=== PATIENT | male | born 1945 | race Caucasian/White ===

== ENCOUNTER 2018-11-15 09:45 | Day surgery (SDC) | payer OTHER | END 2018-11-15 13:29 | disposition home or self-care (01) | LOC: CACL 09:45 | PROVIDERS: ATTEND Internal Medicine Cardiovascular Disease | DX: I48.91 Unspecified atrial fibrillation (principal); I34.0 Nonrheumatic mitral (valve) insufficiency; I07.1 Rheumatic tricuspid insufficiency; I25.5 Ischemic cardiomyopathy; I25.10 Atherosclerotic heart disease of native coronary artery without angina pectoris; I10 Essential (primary) hypertension; E78.2 Mixed hyperlipidemia; Z88.1 Allergy status to other antibiotic agents; Z88.0 Allergy status to penicillin; Z88.8 Allergy status to other drugs, medicaments and biological substances | CPT/HCPCS: 93306 ==

== ENCOUNTER 2018-11-29 09:23 | Day surgery (SDC) | payer MEDICARE ==
[~2018-11-29] VITALS: Ht 170.2 cm; Wt 72.0 kg
[2018-11-29] MEDS ORDERED: TAMS0.4C2 PO (10:02)
[2018-11-29] MEDS ORDERED: CARV3.1212 PO (10:02)
[2018-11-29] MEDS ORDERED: APIX5TAB PO (10:02)
[2018-11-29] MEDS ORDERED: ATOR40TA PO (10:02)
[2018-11-29] MEDS ORDERED: RAMI5CAP57 PO (10:02)
[2018-11-29] MEDS ORDERED: METF500T17 PO (10:02)
[2018-11-29] MEDS ORDERED: ZOLP10TA PO (10:02)
[2018-11-29 10:23] LABS: ANION GAP 6 mmol/L (5-15); CALCIUM 8.6 mg/dL (8.5-10.1); CHLORIDE 107 mmol/L (98-107); CREATININE 0.89 mg/dL (0.7-1.3)
[2018-11-29] MEDS ORDERED: PROPOFOL 10 MG/ML, 20ML ONE (11:44)
== END 2018-11-29 13:02 | disposition home or self-care (01) ==
LOC: CACL 09:23
PROVIDERS: ATTEND Internal Medicine Cardiovascular Disease
DX: I48.91 Unspecified atrial fibrillation (principal); I10 Essential (primary) hypertension; E78.5 Hyperlipidemia, unspecified; I34.0 Nonrheumatic mitral (valve) insufficiency; I25.5 Ischemic cardiomyopathy; E78.2 Mixed hyperlipidemia; I25.10 Atherosclerotic heart disease of native coronary artery without angina pectoris; Z88.1 Allergy status to other antibiotic agents; Z88.0 Allergy status to penicillin; Z88.8 Allergy status to other drugs, medicaments and biological substances
CPT/HCPCS: 36415; 80048; 92960; J2704

== ENCOUNTER 2019-06-04 12:03 | Outpatient (CLI) | payer MEDICARE ==
[~2019-06-04 12:03] MED LIST: APIX5TAB PO; ATOR40TA PO; CARV3.1212 PO; METF500T17 PO; RAMI5CAP57 PO; REGADENOSON 0.4 MG/5 ML SYRINGE ONE; TAMS0.4C2 PO; ZOLP10TA PO
== END 2019-06-04 23:59 | disposition home or self-care (01) ==
LOC: CFH 12:03
PROVIDERS: ATTEND Internal Medicine Cardiovascular Disease
DX: I25.10 Atherosclerotic heart disease of native coronary artery without angina pectoris (principal)
CPT/HCPCS: 78452; 93017; A9502; J2785

== ENCOUNTER 2019-07-23 11:11 | Inpatient (IN) | payer MEDICARE ==
[~2019-07-23] VITALS: Ht 170.2 cm; Wt 79.8 kg
[~2019-07-23 11:11] MED LIST changes: -REGADENOSON 0.4 MG/5 ML SYRINGE ONE
--- NOTE | 2019-07-23 11:41 | NUR ---
A&OX4, RESP EVEN & UNLABORED, SPEECH CLEAR, SKIN PALE/W/D. STATUS POST-CARDIAC SURGERY 07/13/19: CASANDRA, KE, VALVE REPAIR, PACEMAKER. C/O WEAKNESS, SOB, NAUSEA. DENIES VOMITING. LAST ORAL INTAKE: 729 TODAY. LAST BM: YESTERDAY. PT ACCOMPANIED BY NEIGHBOR. Addendum: 07/23/19 at 1141 by AARON SX STARTED TUESDAY
--- NOTE | 2019-07-23 11:42 | NUR ---
DR ESTRADA BS FOR EXAM.
--- NOTE | 2019-07-23 11:57 | NUR ---
ICE CHIPS PROVIDED.
--- NOTE | 2019-07-23 11:57 | NUR ---
LABS DRAWN. XR AT BS.
[2019-07-23] MEDS ORDERED: SODIUM CHLORIDE FLUSH 10ML SYR IVF ONE (12:00)
[2019-07-23 12:10] LABS: BASOPHILS # (AUTO) 0.02 x10^3/uL (0-0.1); BASOPHILS % (AUTO) 0 % (0-1); EOSINOPHILS # (AUTO) 0.08 x10^3/uL (0-0.4); EOSINOPHILS % (AUTO) 1 % (1-7); LYMPHOCYTES # (AUTO) 0.68 x10^3/uL (1-3.4); LYMPHOCYTES % (AUTO) 6 % (22-44); MD NO; MEAN CORPUSCULAR HEMOGLOBIN 33.4 pg (27.5-34.5); MEAN CORPUSCULAR HGB CONC 32.4 g/dL (33.2-36.2); MEAN PLATELET VOLUME 7.3 fL (7.4-10.4); MONOCYTES # (AUTO) 0.89 x10^3/uL (0.2-0.8); MONOCYTES % (AUTO) 8 % (2-9); NEUTROPHILS # (AUTO) 9.79 x10^3/uL (1.8-6.8); NEUTROPHILS % (AUTO) 86 % (42-75); PLATELET COUNT 365 x10^3/uL (130-400); RED BLOOD COUNT 2.97 x10^6/uL (4.38-5.82)
[2019-07-23 12:19] LABS: INTERNATIONAL NORMALIZED RATIO 1.38 (0.93-1.1); PROTHROMBIN TIME 14.3 Seconds (9.6-11.5)
[2019-07-23 12:21] LABS: ANION GAP 7 mmol/L (5-15); CALCIUM 8.5 mg/dL (8.5-10.1); CHLORIDE 98 mmol/L (98-107)
[2019-07-23 12:27] LABS: ALANINE AMINOTRANSFERASE 29 U/L (12-78); ALKALINE PHOSPHATASE 86 U/L (45-117); BILIRUBIN,TOTAL 1.5 mg/dL (0.2-1.0); CREATININE 1.15 mg/dL (0.7-1.3); TOTAL PROTEIN 6.5 g/dL (6.4-8.2)
[2019-07-23 12:29] LABS: TROPONIN I 0.697 ng/mL (0.000-0.045)
--- NOTE | 2019-07-23 12:46 | NUR ---
ERP BS TO DISCUSS POC. PT EXPERIENCING NAUSEA; ZOFRAN TO BE ORDERED.
[2019-07-23] MEDS ORDERED: ONDANSETRON 2MG/ML, 2ML ONE (13:02)
--- NOTE | 2019-07-23 13:16 | NUR ---
PIV INITIATED. PT DENIES NAUSEA CURRENTLY, PERFERS TO WAIT ON ZOFRAN. MED WILL BE HELD.
[2019-07-23] MEDS ORDERED: OMNIPAQUE 350 MG/ML, 75ML BOTTLE ONE (13:57)
[2019-07-23] MEDS ORDERED: ALBUTEROL/IPRATROPIUM 2.5MG/0.5MG, 3 ML ONE (15:31)
--- NOTE | 2019-07-23 15:43 | NUR ---
C/O NAUSEA, REQUESTED HELD ZOFRAN. ZOFRAN GIVEN PER EMAR ORDER. IV SITE PATENT.
--- NOTE | 2019-07-23 15:52 | NUR ---
O2 SAT'S UPPER 80'S, INCREASES W/ DEEP BREATHING. 2LNC APPLIED
--- NOTE | 2019-07-23 15:57 | NUR ---
LAB BS. PINTO PROVIDED TO PTTrace
[2019-07-23] MEDS ORDERED: DOCU250C9 PO (16:05)
[2019-07-23] MEDS ORDERED: FURO20TA3 PO (16:05)
[2019-07-23] MEDS ORDERED: OXYC5CAP2 PO (16:05)
[2019-07-23] MEDS ORDERED: ASPI-496 PO (16:05)
[2019-07-23] MEDS ORDERED: POTA20TA89 PO (16:05)
[2019-07-23] MEDS ORDERED: TRAM50TA2 PO (16:05)
[2019-07-23] MEDS ORDERED: AMIO200T42 PO (16:05)
[2019-07-23] MEDS ORDERED: GABA300C10 PO (16:05)
--- NOTE | 2019-07-23 16:10 | NUR ---
PATIENT'S NEIGHBOR & TRANSPORT HOME: [facility] #[phone], [place] #[phone]
--- NOTE | 2019-07-23 16:10 | NUR ---
PT AMBULATORY TO & FROM FU BR W/OUT INCIDENT, GAIT STEADY USING OWN WALKER, ACCOMPANIED BY FRIEND.
[2019-07-23 16:28] LABS: TROPONIN I 0.695 ng/mL (0.000-0.045)
--- NOTE | 2019-07-23 16:39 | NUR ---
PT REPORT TO BRETT RECINOS FOR ROOM [phone]
[2019-07-23] MEDS ORDERED: ONDANSETRON 2MG/ML, 2ML IVPush PRN (17:00)
[2019-07-23] MEDS ORDERED: ENALAPRILAT 1.25 MG/ML, 2ML IVPush PRN (17:00)
[2019-07-23] MEDS ORDERED: hydrALAzine 20 MG/ML, 1ML IVPush PRN (17:00)
[2019-07-23 17:36] VITALS: BP 102/69
[2019-07-23] MEDS ORDERED: OXYcodone IR 5MG TABLET PO PRN ×2 (18:30→18:42)
[2019-07-23 20:11] VITALS: BP 132/70
[2019-07-23] MEDS: ATORVASTATIN 40 MG TABLET PO SCH (20:34)
[2019-07-23] MEDS: GABAPENTIN 100 MG CAPSULE PO SCH (20:34)
[2019-07-23] MEDS: metFORMIN 500 MG TABLET PO SCH (20:34)
[2019-07-23] MEDS: CARVEDILOL 3.125 MG TABLET PO SCH (20:35)
[2019-07-23] MEDS: AMIODARONE 200 MG TABLET PO SCH (20:35)
[2019-07-23] MEDS: ZOLPIDEM 10MG TABLET PO PRN (20:35)
[2019-07-23] MEDS ORDERED: APIXABAN 5 MG TABLET PO SCH (21:00)
[2019-07-23 21:08] LABS: TROPONIN I 0.699 ng/mL (0.000-0.045)
[2019-07-24 00:28] VITALS: BP 105/69
[2019-07-24] MEDS: SODIUM CHLORIDE 0.9% 1,000 ML IV SCH ×2 (00:34→09:23)
[2019-07-24 02:30] LABS: BASOPHILS # (AUTO) 0.02 x10^3/uL (0-0.1); BASOPHILS % (AUTO) 0 % (0-1); EOSINOPHILS # (AUTO) 0.25 x10^3/uL (0-0.4); EOSINOPHILS % (AUTO) 2 % (1-7); LYMPHOCYTES % (AUTO) 10 % (22-44); MD NO; MEAN CORPUSCULAR HEMOGLOBIN 34.2 pg (27.5-34.5); MEAN CORPUSCULAR VOLUME 103.7 fL (81-97); MEAN PLATELET VOLUME 7.3 fL (7.4-10.4); MONOCYTES # (AUTO) 1.03 x10^3/uL (0.2-0.8); MONOCYTES % (AUTO) 10 % (2-9); NEUTROPHILS # (AUTO) 8.33 x10^3/uL (1.8-6.8); NEUTROPHILS % (AUTO) 78 % (42-75); PLATELET COUNT 335 x10^3/uL (130-400); RED CELL DISTRIBUTION WIDTH 14.1 % (9.4-14.8)
[2019-07-24 02:42] LABS: ANION GAP 7 mmol/L (5-15); CALCIUM 7.9 mg/dL (8.5-10.1); CHLORIDE 100 mmol/L (98-107); CREATININE 1.02 mg/dL (0.7-1.3)
[2019-07-24 02:45] LABS: TROPONIN I 0.686 ng/mL (0.000-0.045)
[2019-07-24 08:10] LABS: TROPONIN I 0.662 ng/mL (0.000-0.045)
[2019-07-24 08:16] VITALS: BP 103/67
[2019-07-24] MEDS: APIXABAN 5 MG TABLET PO SCH ×2 (09:24→20:43)
[2019-07-24] MEDS: ASPIRIN 81 MG TABLET EC PO SCH (09:24)
[2019-07-24] MEDS: metFORMIN 500 MG TABLET PO SCH ×2 (09:25→20:43)
[2019-07-24] MEDS: RAMIPRIL 5 MG CAP PO SCH (09:25)
[2019-07-24] MEDS: TAMSULOSIN 0.4 MG CAP.ER.24H PO SCH (09:25)
[2019-07-24] MEDS: CARVEDILOL 3.125 MG TABLET PO SCH ×2 (09:26→20:44)
[2019-07-24] MEDS: AMIODARONE 200 MG TABLET PO SCH ×2 (09:27→20:44)
[2019-07-24] MEDS: GABAPENTIN 100 MG CAPSULE PO SCH ×3 (09:27→20:43)
[2019-07-24] MEDS: POTASSIUM CHLORIDE 20 MEQ TAB.ER.PRT PO SCH (09:27)
[2019-07-24] MEDS: FUROSEMIDE 40 MG TABLET PO SCH (09:28)
[2019-07-24] MEDS ORDERED: LIDOCAINE 1%, 20ML ONE (13:25)
[2019-07-24 15:09] VITALS: BP 109/69
[2019-07-24 20:38] VITALS: BP 103/67
[2019-07-24] MEDS: ATORVASTATIN 40 MG TABLET PO SCH (20:43)
[2019-07-24] MEDS: ZOLPIDEM 10MG TABLET PO PRN (21:47)
[2019-07-25 01:02] VITALS: BP 109/71
[2019-07-25 06:03] LABS: BASOPHILS # (AUTO) 0.01 x10^3/uL (0-0.1); BASOPHILS % (AUTO) 0 % (0-1); EOSINOPHILS # (AUTO) 0.16 x10^3/uL (0-0.4); EOSINOPHILS % (AUTO) 1 % (1-7); LYMPHOCYTES # (AUTO) 0.95 x10^3/uL (1-3.4); LYMPHOCYTES % (AUTO) 8 % (22-44); MD NO; MEAN CORPUSCULAR HEMOGLOBIN 34.4 pg (27.5-34.5); MEAN CORPUSCULAR HGB CONC 33.1 g/dL (33.2-36.2); MEAN CORPUSCULAR VOLUME 103.7 fL (81-97); MEAN PLATELET VOLUME 7.5 fL (7.4-10.4); MONOCYTES # (AUTO) 0.99 x10^3/uL (0.2-0.8); MONOCYTES % (AUTO) 8 % (2-9); NEUTROPHILS # (AUTO) 10.31 x10^3/uL (1.8-6.8); NEUTROPHILS % (AUTO) 83 % (42-75); PLATELET COUNT 319 x10^3/uL (130-400); RED CELL DISTRIBUTION WIDTH 13.9 % (9.4-14.8)
[2019-07-25 06:26] LABS: ANION GAP 4 mmol/L (5-15); CALCIUM 7.8 mg/dL (8.5-10.1); CHLORIDE 101 mmol/L (98-107)
[2019-07-25 06:27] LABS: CREATININE 0.86 mg/dL (0.7-1.3)
[2019-07-25 07:05] VITALS: BP 101/69
[2019-07-25] MEDS: ASPIRIN 81 MG TABLET EC PO SCH (08:30)
[2019-07-25] MEDS: POTASSIUM CHLORIDE 20 MEQ TAB.ER.PRT PO SCH (08:30)
[2019-07-25] MEDS: FUROSEMIDE 40 MG TABLET PO SCH (08:31)
[2019-07-25] MEDS: APIXABAN 5 MG TABLET PO SCH ×2 (08:31→21:41)
[2019-07-25] MEDS: RAMIPRIL 5 MG CAP PO SCH (08:31)
[2019-07-25] MEDS: metFORMIN 500 MG TABLET PO SCH ×2 (08:31→21:40)
[2019-07-25] MEDS: TAMSULOSIN 0.4 MG CAP.ER.24H PO SCH (08:31)
[2019-07-25] MEDS: GABAPENTIN 100 MG CAPSULE PO SCH ×3 (08:31→21:41)
[2019-07-25] MEDS: CARVEDILOL 3.125 MG TABLET PO SCH ×2 (08:31→21:41)
[2019-07-25] MEDS: AMIODARONE 200 MG TABLET PO SCH ×2 (08:31→21:41)
[2019-07-25] MEDS ORDERED: SULF1TAB24 PO (12:41)
[2019-07-25 12:51] VITALS: BP 93/64
[2019-07-25] MEDS: DOCUSATE 100 MG CAPSULE PO PRN (17:26)
[2019-07-25 19:29] VITALS: BP 100/64
[2019-07-25] MEDS: ATORVASTATIN 40 MG TABLET PO SCH (21:40)
[2019-07-25] MEDS: ZOLPIDEM 10MG TABLET PO PRN (21:48)
[2019-07-26 00:33] VITALS: BP 76/48
[2019-07-26 00:50] VITALS: BP_SYST 105; BP_SYST 92; BP_DIAS 56; BP_DIAS 67
[2019-07-26 06:10] LABS: BASOPHILS # (AUTO) 0.01 x10^3/uL (0-0.1); BASOPHILS % (AUTO) 0 % (0-1); EOSINOPHILS # (AUTO) 0.07 x10^3/uL (0-0.4); EOSINOPHILS % (AUTO) 1 % (1-7); LYMPHOCYTES # (AUTO) 0.76 x10^3/uL (1-3.4); LYMPHOCYTES % (AUTO) 7 % (22-44); MD NO; MEAN CORPUSCULAR HEMOGLOBIN 34.2 pg (27.5-34.5); MEAN CORPUSCULAR HGB CONC 33.2 g/dL (33.2-36.2); MEAN CORPUSCULAR VOLUME 103.1 fL (81-97); MEAN PLATELET VOLUME 7.6 fL (7.4-10.4); MONOCYTES # (AUTO) 0.87 x10^3/uL (0.2-0.8); MONOCYTES % (AUTO) 8 % (2-9); NEUTROPHILS # (AUTO) 9.12 x10^3/uL (1.8-6.8); NEUTROPHILS % (AUTO) 84 % (42-75); PLATELET COUNT 345 x10^3/uL (130-400); RED BLOOD COUNT 2.64 x10^6/uL (4.38-5.82); RED CELL DISTRIBUTION WIDTH 13.9 % (9.4-14.8)
[2019-07-26 07:23] LABS: ANION GAP 5 mmol/L (5-15); CHLORIDE 100 mmol/L (98-107); CREATININE 0.91 mg/dL (0.7-1.3)
[2019-07-26] MEDS ORDERED: MAGNESIUM SULFATE PMX 2GM/50ML 50 ML IV ONE (08:30)
[2019-07-26] MEDS: FUROSEMIDE 40 MG TABLET PO SCH (08:49)
[2019-07-26] MEDS: FERROUS SULFATE 325 MG TABLET PO SCH (08:49)
[2019-07-26] MEDS: POTASSIUM CHLORIDE 20 MEQ TAB.ER.PRT PO SCH (08:49)
[2019-07-26] MEDS: ASPIRIN 81 MG TABLET EC PO SCH (08:49)
[2019-07-26] MEDS: AMIODARONE 200 MG TABLET PO SCH ×2 (08:49→21:18)
[2019-07-26] MEDS: GABAPENTIN 100 MG CAPSULE PO SCH ×3 (08:49→21:18)
[2019-07-26] MEDS: RAMIPRIL 5 MG CAP PO SCH (08:49)
[2019-07-26] MEDS: CARVEDILOL 3.125 MG TABLET PO SCH ×2 (08:49→21:17)
[2019-07-26] MEDS: TAMSULOSIN 0.4 MG CAP.ER.24H PO SCH (08:49)
[2019-07-26] MEDS: metFORMIN 500 MG TABLET PO SCH ×2 (08:49→21:18)
[2019-07-26] MEDS: APIXABAN 5 MG TABLET PO SCH ×2 (08:50→21:18)
[2019-07-26 08:54] VITALS: BP 103/71
[2019-07-26] MEDS ORDERED: DIGOXIN 0.25 MG/ML, 2ML IVPush ONE (10:30)
[2019-07-26 13:26] VITALS: BP 101/71
[2019-07-26] MEDS: DOCUSATE 100 MG CAPSULE PO PRN (15:34)
[2019-07-26] MEDS: DIGOXIN 0.25 MG/ML, 2ML IVPush SCH ×2 (16:45→22:40)
[2019-07-26 20:00] VITALS: BP 100/61
[2019-07-26] MEDS: ZOLPIDEM 10MG TABLET PO PRN (21:18)
[2019-07-26] MEDS: ATORVASTATIN 40 MG TABLET PO SCH (21:18)
[2019-07-27 02:00] VITALS: BP 90/50
[2019-07-27 04:28] VITALS: BP 109/76
[2019-07-27 05:07] LABS: ANION GAP 6 mmol/L (5-15); CALCIUM 7.7 mg/dL (8.5-10.1); CHLORIDE 100 mmol/L (98-107); CREATININE 0.96 mg/dL (0.7-1.3)
[2019-07-27 07:45] VITALS: BP 103/69
[2019-07-27] MEDS: RAMIPRIL 5 MG CAP PO SCH (07:58)
[2019-07-27] MEDS: FERROUS SULFATE 325 MG TABLET PO SCH (07:58)
[2019-07-27] MEDS: APIXABAN 5 MG TABLET PO SCH ×2 (07:59→22:13)
[2019-07-27] MEDS: TAMSULOSIN 0.4 MG CAP.ER.24H PO SCH (07:59)
[2019-07-27] MEDS: CARVEDILOL 3.125 MG TABLET PO SCH ×2 (07:59→22:13)
[2019-07-27] MEDS: ASPIRIN 81 MG TABLET EC PO SCH (07:59)
[2019-07-27] MEDS: GABAPENTIN 100 MG CAPSULE PO SCH ×3 (07:59→22:12)
[2019-07-27 08:00] VITALS: BP 103/69
[2019-07-27] MEDS: AMIODARONE 200 MG TABLET PO SCH ×2 (08:00→22:13)
[2019-07-27] MEDS: metFORMIN 500 MG TABLET PO SCH ×2 (08:00→22:12)
[2019-07-27] MEDS: POTASSIUM CHLORIDE 20 MEQ TAB.ER.PRT PO SCH (08:00)
[2019-07-27] MEDS: FUROSEMIDE 40 MG TABLET PO SCH (08:00)
[2019-07-27] MEDS: DIGOXIN 0.125 MG TABLET PO SCH (11:35)
[2019-07-27] MEDS ORDERED: DIGO125T PO (12:18)
[2019-07-27] MEDS ORDERED: CARV3.1212 PO (12:18)
[2019-07-27 12:51] VITALS: BP 93/65
[2019-07-27 19:52] VITALS: BP 104/64
[2019-07-27] MEDS: ATORVASTATIN 40 MG TABLET PO SCH (22:12)
[2019-07-27] MEDS: ZOLPIDEM 10MG TABLET PO PRN (22:39)
[2019-07-28 02:32] VITALS: BP 98/61
[2019-07-28 05:18] LABS: ANION GAP 6 mmol/L (5-15); CALCIUM 7.9 mg/dL (8.5-10.1); CHLORIDE 99 mmol/L (98-107)
[2019-07-28 05:19] LABS: CREATININE 0.88 mg/dL (0.7-1.3)
[2019-07-28 07:40] VITALS: BP 98/67
[2019-07-28] MEDS: RAMIPRIL 5 MG CAP PO SCH (09:00)
[2019-07-28] MEDS: CARVEDILOL 3.125 MG TABLET PO SCH ×2 (09:00→21:20)
[2019-07-28 09:25] VITALS: BP 95/61
[2019-07-28] MEDS: FERROUS SULFATE 325 MG TABLET PO SCH (09:29)
[2019-07-28] MEDS: TAMSULOSIN 0.4 MG CAP.ER.24H PO SCH (09:29)
[2019-07-28] MEDS: DIGOXIN 0.125 MG TABLET PO SCH (09:29)
[2019-07-28] MEDS: ASPIRIN 81 MG TABLET EC PO SCH (09:29)
[2019-07-28] MEDS: APIXABAN 5 MG TABLET PO SCH ×2 (09:29→21:22)
[2019-07-28] MEDS: AMIODARONE 200 MG TABLET PO SCH ×2 (09:29→21:23)
[2019-07-28] MEDS: POTASSIUM CHLORIDE 20 MEQ TAB.ER.PRT PO SCH (09:29)
[2019-07-28] MEDS: GABAPENTIN 100 MG CAPSULE PO SCH ×3 (09:29→21:22)
[2019-07-28] MEDS: FUROSEMIDE 40 MG TABLET PO SCH (09:30)
[2019-07-28] MEDS: metFORMIN 500 MG TABLET PO SCH ×2 (09:30→21:23)
[2019-07-28 12:09] VITALS: BP 113/71
[2019-07-28 20:06] VITALS: BP 102/64
[2019-07-28 21:20] VITALS: BP 115/73
[2019-07-28] MEDS: ATORVASTATIN 40 MG TABLET PO SCH (21:23)
[2019-07-28] MEDS: ZOLPIDEM 10MG TABLET PO PRN (21:23)
[2019-07-29 00:16] VITALS: BP 116/82
[2019-07-29 03:00] VITALS: BP 101/67
[2019-07-29 05:20] LABS: BASOPHILS # (AUTO) 0.06 x10^3/uL (0-0.1); BASOPHILS % (AUTO) 1 % (0-1); EOSINOPHILS % (AUTO) 1 % (1-7); LYMPHOCYTES % (AUTO) 11 % (22-44); MD NO; MEAN CORPUSCULAR HEMOGLOBIN 34.1 pg (27.5-34.5); MEAN CORPUSCULAR HGB CONC 33.4 g/dL (33.2-36.2); MEAN CORPUSCULAR VOLUME 102.2 fL (81-97); MEAN PLATELET VOLUME 7.7 fL (7.4-10.4); MONOCYTES # (AUTO) 0.97 x10^3/uL (0.2-0.8); MONOCYTES % (AUTO) 11 % (2-9); NEUTROPHILS # (AUTO) 6.47 x10^3/uL (1.8-6.8); NEUTROPHILS % (AUTO) 76 % (42-75); PLATELET COUNT 435 x10^3/uL (130-400); RED BLOOD COUNT 2.77 x10^6/uL (4.38-5.82); RED CELL DISTRIBUTION WIDTH 14.2 % (9.4-14.8)
[2019-07-29 05:33] LABS: CHLORIDE 102 mmol/L (98-107)
[2019-07-29 05:41] LABS: ANION GAP 7 mmol/L (5-15); CALCIUM 8.1 mg/dL (8.5-10.1); CREATININE 0.87 mg/dL (0.7-1.3)
[2019-07-29 08:03] VITALS: BP 107/69
[2019-07-29] MEDS: GABAPENTIN 100 MG CAPSULE PO SCH ×3 (09:26→21:12)
[2019-07-29] MEDS: FERROUS SULFATE 325 MG TABLET PO SCH (09:26)
[2019-07-29] MEDS: ASPIRIN 81 MG TABLET EC PO SCH (09:26)
[2019-07-29] MEDS: FUROSEMIDE 40 MG TABLET PO SCH (09:27)
[2019-07-29] MEDS: TAMSULOSIN 0.4 MG CAP.ER.24H PO SCH (09:27)
[2019-07-29] MEDS: CARVEDILOL 3.125 MG TABLET PO SCH ×2 (09:27→21:14)
[2019-07-29] MEDS: metFORMIN 500 MG TABLET PO SCH ×2 (09:27→21:14)
[2019-07-29] MEDS: DIGOXIN 0.125 MG TABLET PO SCH (09:27)
[2019-07-29] MEDS: AMIODARONE 200 MG TABLET PO SCH ×2 (09:28→21:11)
[2019-07-29] MEDS: RAMIPRIL 5 MG CAP PO SCH (09:28)
[2019-07-29] MEDS: POTASSIUM CHLORIDE 20 MEQ TAB.ER.PRT PO SCH (09:28)
[2019-07-29] MEDS: APIXABAN 5 MG TABLET PO SCH ×2 (09:29→21:14)
[2019-07-29 14:20] VITALS: BP 97/61
[2019-07-29 19:14] VITALS: BP 97/61
[2019-07-29] MEDS: ATORVASTATIN 40 MG TABLET PO SCH (21:12)
[2019-07-29] MEDS: ZOLPIDEM 10MG TABLET PO PRN (21:24)
[2019-07-30 00:26] VITALS: BP 102/63
[2019-07-30] MEDS: ASPIRIN 81 MG TABLET EC PO SCH (08:34)
[2019-07-30] MEDS: metFORMIN 500 MG TABLET PO SCH (08:34)
[2019-07-30] MEDS: CARVEDILOL 3.125 MG TABLET PO SCH (08:35)
[2019-07-30 08:36] VITALS: BP 121/79
[2019-07-30] MEDS: FERROUS SULFATE 325 MG TABLET PO SCH (08:36)
[2019-07-30] MEDS: TAMSULOSIN 0.4 MG CAP.ER.24H PO SCH (08:36)
[2019-07-30] MEDS: POTASSIUM CHLORIDE 20 MEQ TAB.ER.PRT PO SCH (08:36)
[2019-07-30] MEDS: GABAPENTIN 100 MG CAPSULE PO SCH (08:36)
[2019-07-30] MEDS: APIXABAN 5 MG TABLET PO SCH (08:36)
[2019-07-30] MEDS: RAMIPRIL 5 MG CAP PO SCH (08:36)
[2019-07-30] MEDS: FUROSEMIDE 40 MG TABLET PO SCH (08:36)
[2019-07-30] MEDS: AMIODARONE 200 MG TABLET PO SCH (08:38)
[2019-07-30] MEDS: DIGOXIN 0.125 MG TABLET PO SCH (08:38)
[2019-07-30 13:02] VITALS: BP 100/66
[2019-07-30] MEDS ORDERED: FLU VACC QS2019-20 36MOS UP/PF 0.5 ML IM-VACC ONE (14:30)
== END 2019-07-30 15:50 | disposition home health service (06) | DRG 292 ==
LOC: ED 14:46 → EDIP 15:50 → 5SO 17:17 → DCLOUNGE 07-30 15:32
PROVIDERS: ADMIT Family Medicine; ATTEND Family Medicine
PROC: 0W9B3ZZ Drainage of Left Pleural Cavity, Percutaneous Approach (ICD-10-PCS; principal; 2019-07-24)
PROC: 0W993ZZ Drainage of Right Pleural Cavity, Percutaneous Approach (ICD-10-PCS; 2019-07-24)
DX: I11.0 Hypertensive heart disease with heart failure (principal); I48.20 Chronic atrial fibrillation, unspecified; J98.11 Atelectasis; I50.43 Acute on chronic combined systolic (congestive) and diastolic (congestive) heart failure; D64.9 Anemia, unspecified; E11.9 Type 2 diabetes mellitus without complications; E78.5 Hyperlipidemia, unspecified; E86.0 Dehydration; I25.10 Atherosclerotic heart disease of native coronary artery without angina pectoris; I25.5 Ischemic cardiomyopathy; Z88.0 Allergy status to penicillin; N40.0 Benign prostatic hyperplasia without lower urinary tract symptoms; Z79.01 Long term (current) use of anticoagulants; Z88.8 Allergy status to other drugs, medicaments and biological substances; Z79.84 Long term (current) use of oral hypoglycemic drugs; Z87.891 Personal history of nicotine dependence; Z95.0 Presence of cardiac pacemaker; Z95.1 Presence of aortocoronary bypass graft; Z95.2 Presence of prosthetic heart valve; Z95.5 Presence of coronary angioplasty implant and graft
CPT/HCPCS: 32555; 36415; 71045; 71260; 80048; 80053; 83735; 84100; 84484; 85025; 85610; 85730; 90686; 93005; 93306; 94640; G0378; Q9967; J1160; J3475; J7030

== ENCOUNTER → 2020-10-30 | Outpatient (CLI) | payer MEDICARE ==
[~2020-10-30] MED LIST changes: +AMIO200T42 PO; +ASPI-496 PO; +DIGO125T85 PO; +DOCU250C9 PO; +FURO20TA3 PO; +GABA300C10 PO; +OXYC5CAP2 PO; +POTA20TA89 PO; +REGADENOSON 0.4 MG/5 ML SYRINGE ONE; +SULF1TAB24 PO; +TRAM50TA2 PO
== END | disposition home or self-care (01) ==
LOC: CFH 12:03
PROVIDERS: ATTEND Internal Medicine Cardiovascular Disease
DX: I21.09 ST elevation (STEMI) myocardial infarction involving other coronary artery of anterior wall (principal); I48.0 Paroxysmal atrial fibrillation; R29.898 Other symptoms and signs involving the musculoskeletal system
CPT/HCPCS: 78452; 93017; A9502; J2785